=== PATIENT | male | born 1930 | race Caucasian/White ===

== ENCOUNTER → 2017-09-21 | Outpatient (CLI) | payer OTHER ==
[~2017-09-21] MED LIST: OPTIRAY 320 IV PRN
--- NOTE | 2017-09-21 13:49 | DIAGNOSTIC IMAGING REPORT ---
CT ANGIOGRAPHY OF THE PELVIS AND LOWER EXTREMITIES WITH RUNOFF CLINICAL HISTORY: Stricture of artery. COMPARISON STUDY: No previous studies for comparison. TECHNIQUE: Helical axial images were obtained of the pelvis and each lower extremity during arterial phase following intravenous injection of 120 cc Optiray 320 IV. Sagittal and coronal reconstructed reviewed as well as maximal intensity projections on an independent 3-D workstation. FINDINGS: A 9 mm calculus within the bladder is noted. The prostate gland is moderately enlarged. Fat containing right inguinal hernia is noted. There may be a previous hernia repair with mesh. Colonic diverticulosis is noted without evidence for acute diverticulitis within visual portions of the colon. There are bilateral knee arthroplasties. No fracture or suspicious osseous lesions are present. Lower extremity edema is noted. There is extensive atherosclerotic plaque throughout the iliac systems and both lower extremities. 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 This vessel is mildly dilated, measuring 1.6 cm in caliber. The left external iliac, common femoral and superficial femoral arteries are patent. There is moderate stenosis of the distal left superficial femoral artery shown on image 487 of [id number]. The left popliteal artery is patent. There is severe multifocal stenosis of the proximal left anterior tibial artery. However, this vessel is patent as is the left dorsalis pedis. There is severe stenosis at the origin of the right posterior tibial artery. This vessel is patent to the left foot. The left peroneal artery is patent. The right common iliac, external iliac, common femoral and superficial femoral arteries are patent. There is mild to moderate plaque within these vessels. There is moderate stenosis at the origin of the right anterior tibial artery. This vessel as well as the right dorsalis pedis are patent. Severe stenosis at the origin of the right posterior tibial artery is noted. Moderate multifocal stenoses within the right posterior tibial artery are patent although this vessel is patent to the right foot. The right peroneal artery is patent. IMPRESSION: 1. Extensive atherosclerotic plaque within each lower extremity, greatest within the calf vessels. Vessels are patent however moderate to severe multifocal stenoses within these vessels, as detailed above. No abrupt vessel occlusion. Evaluation of the small arteries is difficult given the small size and extensive atherosclerotic plaque. No significant stenosis of the bilateral common iliac, external iliac, common femoral arteries. Moderate stenosis of the distal left superficial femoral artery. 2. Post bilateral knee arthroplasty. 3. 9 mm bladder calculus. Electronically signed by: Jose Joaquin M.D. 09/21/2017 1:48 PM Dictated Date/Time: 09/21/2017 1:28 PM
== END | disposition home or self-care (01) ==
LOC: C.CTS 12:06
PROVIDERS: ATTEND Physician Assistant
DX: I77.1 Stricture of artery (principal)

== ENCOUNTER → 2017-12-17 | Outpatient (CLI) | payer OTHER | END | disposition home or self-care (01) | LOC: C.RDSM 10:46 | PROVIDERS: ATTEND Physical Medicine & Rehabilitation Sports Medicine | DX: M25.561 Pain in right knee (principal) ==